=== PATIENT | male | born 1950 | race African-American/Black ===

== ENCOUNTER 2018-11-13 10:41 | Inpatient (IN) | payer BC, MEDICARE ==
[~2018-11-13] VITALS: Ht 188 cm; Wt 136.5 kg
[2018-11-13] MEDS ORDERED: FUROSEMIDE 40MG/4ML VIAL IV ONE (11:30)
[2018-11-13 12:23] LABS: BG BASE EXCESS -0.6 mmol/L (-2.0-2.0); BG BILEVEL POS AIRWAY PRESSURE ST=15/5; BG CARBOXYHEMOGLOBIN 3.9 % (0.5-1.5); BG DEOXYHEMOGLOBIN 7.6 % (0.0-5.0); BG FRACTION INSPIRED OXYGEN 50; BG HCO3 ACT 25.8 mmol/L (22.0-26.0); BG METHEMOGLOBIN 0.3 % (0.0-1.5); BG OXYGEN SATURATION 92.1 % (92.0-98.5); BG OXYHEMOGLOBIN 88.2 % (94.0-97.0); BG PCO2 49.6 mmHg (35.0-45.0); BG PH 7.334 (7.350-7.450); BG PO2 68.5 mmHg (75.0-100.0); BG PRESSURE SUPPORT 10; BG SAMPLE SITE RIGHT RADIAL; BG TOTAL HEMOGLOBIN 13.7 g/dL (12.0-18.0); BG VENT MODE MASK - BIPAP; BG VENT RATE 16 set
[2018-11-13 12:44] LABS: HEMATOCRIT. 42.2 % (42.0-52.0); HEMOGLOBIN. 13.1 g/dL (14.0-18.0); INR 1.2; MEAN CORPUSCULAR HEMOGLOBIN 24.6 pg (28.0-32.0); MEAN CORPUSCULAR VOLUME 78.9 fL (80.0-94.0); MEAN PLATELET VOLUME 7.1 fl (7.4-10.4); PLATELET 309 x1000/uL (130-400); PROTHROMBIN TIME 12.2 sec (9.1-11.1); RED BLOOD CELL COUNT 5.35 mill/uL (4.7-6.1); RED CELL DISTRIBUTION WIDTH 19.4 % (11.6-14.6)
[2018-11-13] MEDS ORDERED: CLINDAMYCIN 900 MG in DEXTROSE 5% WATER 50 ML IV ONE (12:45)
[2018-11-13 12:48] LABS: CHLORIDE 105 mEq/L (98-107)
[2018-11-13] MEDS ORDERED: NITROGLYCERIN OINT 1GM/INCH UDPKT TD ONE (13:15)
[2018-11-13 13:24] LABS: NUCLEATED RED BLOOD CELLS 1 /100 WBC; PLATELET ESTIMATE NORMAL
[2018-11-13] MEDS ORDERED: DEXTROSE 50% WATER 50ML SYRINGE IV ONE (13:45)
[2018-11-13] MEDS ORDERED: INSULIN REGULAR (HUMULIN R) 300UNITS/3ML IV ONE (13:45)
[2018-11-13] MEDS ORDERED: SODIUM POLYSTYRENE SULFONATE 15 G/60 ML BOT PO ONE (13:45)
[2018-11-13] MEDS: ALBUTEROL (0.083%) 2.5MG/3ML NEB HHN SCH ×3 (14:00→15:10)
[2018-11-13] MEDS ORDERED: CLONIDINE 0.1MG TABLET PO PRN (16:45)
[2018-11-13] MEDS ORDERED: DEXTROSE 50% WATER 50ML SYRINGE IV PRN (16:45)
[2018-11-13] MEDS ORDERED: FUROSEMIDE 100MG/10ML VIAL IVP SCH (22:00)
[2018-11-13] MEDS: ASPIRIN 81MG EC TABLET PO SCH (22:14)
[2018-11-13] MEDS ORDERED: GABAPENTIN 100MG CAPSULE PO NR (22:48)
[2018-11-14 06:17] LABS: HEMATOCRIT. 41.5 % (42.0-52.0); HEMOGLOBIN. 12.8 g/dL (14.0-18.0); MEAN CORPUSCULAR HEMOGLOBIN 24.4 pg (28.0-32.0); MEAN CORPUSCULAR VOLUME 78.8 fL (80.0-94.0); PLATELET 306 x1000/uL (130-400); RED BLOOD CELL COUNT 5.26 mill/uL (4.7-6.1); RED CELL DISTRIBUTION WIDTH 19.8 % (11.6-14.6)
[2018-11-14 06:23] LABS: CHLORIDE 107 mEq/L (98-107)
[2018-11-14 06:33] LABS: CREATINE KINASE 27 IU/L (39-308); CREATINE KINASE MB FRACTION < 1.0 ng/mL (0.5-3.6); LDL CHOLESTEROL 30 mg/dL (5-100)
[2018-11-14 06:34] LABS: HDL CHOLESTEROL 35 mg/dL (40-59)
[2018-11-14 06:45] LABS: NUCLEATED RED BLOOD CELLS 1 /100 WBC; PLATELET ESTIMATE NORMAL
[2018-11-14 08:00] VITALS: BP 124/65
[2018-11-14 10:58] VITALS: BP 124/65
[2018-11-14 11:30] VITALS: BP 125/63
[2018-11-14 12:00] VITALS: BP_SYST 125; BP_DIAS 63; BP_DIAS 72
[2018-11-14] MEDS ORDERED: FUROSEMIDE 40MG/4ML VIAL IVP SCH (12:00)
[2018-11-14] MEDS: BLOOD SUGAR DIAGNOSTIC STRIP TEST SCH ×3 (12:11→21:57)
[2018-11-14] MEDS: INSULIN LISPRO 100 UNITS/ML SUBCUT SCH ×3 (12:15→21:00)
[2018-11-14] MEDS: ASPIRIN 81MG EC TABLET PO SCH (13:30)
[2018-11-14] MEDS: GABAPENTIN 100MG CAPSULE PO SCH ×2 (13:30→21:57)
[2018-11-14] MEDS ORDERED: METF-416 MT (15:28)
[2018-11-14] MEDS ORDERED: FURO40TA5 MT (15:29)
[2018-11-14] MEDS ORDERED: GABA-529 MT (15:33)
[2018-11-14] MEDS ORDERED: LIRA0.6P2 SQ (15:45)
[2018-11-14] MEDS ORDERED: ZINC50TA69 MT (15:45)
[2018-11-14] MEDS ORDERED: SILD20TA MT (15:45)
[2018-11-14] MEDS ORDERED: FLUT1BLS3 IH (15:45)
[2018-11-14] MEDS ORDERED: [UNRECOGNIZED DRUG - CODE] TP (15:45)
[2018-11-14] MEDS ORDERED: FENO145T36 PO (15:45)
[2018-11-14] MEDS ORDERED: FLUO15CR2 TP (15:45)
[2018-11-14] MEDS ORDERED: LEVO500T89 MT (15:45)
[2018-11-14] MEDS ORDERED: SPIR25TA6 MT (15:45)
[2018-11-14] MEDS ORDERED: AMBR5TAB3 MT (15:45)
[2018-11-14] MEDS ORDERED: ALBU90AE INH (15:45)
[2018-11-14] MEDS ORDERED: ASPI-1159 MT (15:45)
[2018-11-14] MEDS ORDERED: AMLO5TAB88 MT (15:45)
[2018-11-14 16:00] VITALS: BP 129/63
[2018-11-14] MEDS ORDERED: METOLAZONE 5MG TABLET PO NR (17:00)
[2018-11-14] MEDS ORDERED: ENOXAPARIN 80MG/0.8ML SYR SUBCUT NR (17:15)
[2018-11-14] MEDS ORDERED: ALBUTEROL (0.083%) 2.5MG/3ML NEB HHN PRN (18:45)
[2018-11-14] MEDS: FUROSEMIDE 100MG/10ML VIAL IVP SCH (19:01)
[2018-11-14 20:00] VITALS: BP 136/70
[2018-11-14] MEDS: AMLODIPINE 2.5MG TABLET PO SCH (21:58)
[2018-11-14] MEDS: LETAIRIS 5 MG PO SCH (21:58)
[2018-11-14] MEDS: FLUTICASONE/VILANTEROL 200-25 BLST.W.DEV ORI SCH (23:06)
[2018-11-14] MEDS: UMECLIDINIUM BROMIDE 1 INH BLST.W.DEV IH SCH (23:07)
[2018-11-14] MEDS ORDERED: PREDNISONE 20MG TABLET PO SCH (23:33)
[2018-11-15] VITALS: BP 114/56
[2018-11-15 04:05] VITALS: BP 110/61
[2018-11-15] MEDS: GABAPENTIN 100MG CAPSULE PO SCH ×3 (04:57→21:36)
[2018-11-15] MEDS: FUROSEMIDE 100MG/10ML VIAL IVP SCH ×2 (04:57→19:26)
[2018-11-15] MEDS: SILDENAFIL CITRATE 20MG TABLET PO SCH ×3 (05:03→21:36)
[2018-11-15] MEDS: BLOOD SUGAR DIAGNOSTIC STRIP TEST SCH ×4 (06:07→21:29)
[2018-11-15] MEDS: INSULIN LISPRO 100 UNITS/ML SUBCUT SCH ×4 (06:10→21:37)
[2018-11-15 06:37] LABS: CHLORIDE 103 mEq/L (98-107)
[2018-11-15 06:38] LABS: HEMATOCRIT. 40.1 % (42.0-52.0); HEMOGLOBIN. 12.6 g/dL (14.0-18.0); MEAN CORPUSCULAR HEMOGLOBIN 24.6 pg (28.0-32.0); MEAN CORPUSCULAR VOLUME 78.6 fL (80.0-94.0); MEAN PLATELET VOLUME 7.3 fl (7.4-10.4); PLATELET 313 x1000/uL (130-400); RED BLOOD CELL COUNT 5.11 mill/uL (4.7-6.1); RED CELL DISTRIBUTION WIDTH 19.8 % (11.6-14.6)
[2018-11-15 08:00] VITALS: BP 113/54
[2018-11-15] MEDS: AMLODIPINE 2.5MG TABLET PO SCH ×2 (09:00→21:00)
[2018-11-15] MEDS ORDERED: ENOXAPARIN 40MG/0.4ML SYR SUBCUT SCH (09:00)
[2018-11-15] MEDS: UMECLIDINIUM BROMIDE 1 INH BLST.W.DEV IH SCH (09:00)
[2018-11-15] MEDS: FLUTICASONE/VILANTEROL 200-25 BLST.W.DEV ORI SCH (09:00)
[2018-11-15] MEDS: NICOTINE 21MG PATCH TD SCH (09:00)
[2018-11-15] MEDS: ASPIRIN 81MG EC TABLET PO SCH (09:51)
[2018-11-15] MEDS: LETAIRIS 5 MG PO SCH (09:52)
[2018-11-15] MEDS: PREDNISONE 20MG TABLET PO SCH (09:53)
[2018-11-15 11:00] LABS: BG BASE EXCESS 3.5 mmol/L (-2.0-2.0); BG CARBOXYHEMOGLOBIN 2.1 % (0.5-1.5); BG DEOXYHEMOGLOBIN 17.7 % (0.0-5.0); BG FRACTION INSPIRED OXYGEN 28; BG HCO3 ACT 30.1 mmol/L (22.0-26.0); BG METHEMOGLOBIN 0.4 % (0.0-1.5); BG OXYGEN SATURATION 81.8 % (92.0-98.5); BG OXYHEMOGLOBIN 79.8 % (94.0-97.0); BG PCO2 53.7 mmHg (35.0-45.0); BG PH 7.366 (7.350-7.450); BG PO2 47.5 mmHg (75.0-100.0); BG SAMPLE SITE RIGHT RADIAL; BG TOTAL HEMOGLOBIN 13.5 g/dL (12.0-18.0); BG VENT MODE NASAL CANNULA
[2018-11-15 12:00] VITALS: BP 120/67
[2018-11-15 13:30] LABS: NUCLEATED RED BLOOD CELLS 1 /100 WBC
[2018-11-15 13:31] LABS: PLATELET ESTIMATE NORMAL
[2018-11-15 15:12] LABS: BG BASE EXCESS 3.7 mmol/L (-2.0-2.0); BG CARBOXYHEMOGLOBIN 2.1 % (0.5-1.5); BG DEOXYHEMOGLOBIN 14.4 % (0.0-5.0); BG FRACTION INSPIRED OXYGEN 40; BG METHEMOGLOBIN 0.2 % (0.0-1.5); BG OXYGEN SATURATION 85.3 % (92.0-98.5); BG OXYHEMOGLOBIN 83.3 % (94.0-97.0); BG PCO2 52.4 mmHg (35.0-45.0); BG PH 7.376 (7.350-7.450); BG PO2 51.9 mmHg (75.0-100.0); BG SAMPLE SITE RIGHT BRACHIAL; BG TOTAL HEMOGLOBIN 13.5 g/dL (12.0-18.0); BG VENT MODE NASAL CANNULA
[2018-11-15] MEDS ORDERED: ENOXAPARIN 80MG/0.8ML SYR SUBCUT SCH (15:30)
[2018-11-15 16:00] VITALS: BP 109/40
[2018-11-15] MEDS ORDERED: ENOXAPARIN 40MG/0.4ML SYR SUBCUT NR (17:30)
[2018-11-15 20:00] VITALS: BP 112/57
[2018-11-16] VITALS (7 sets, daily range): BP systolic 104–113; BP diastolic 48–67
[2018-11-16] MEDS ORDERED: METOLAZONE 2.5MG TABLET PO NR (05:30)
[2018-11-16] MEDS: FUROSEMIDE 100MG/10ML VIAL IVP SCH ×2 (06:12→17:25)
[2018-11-16] MEDS: GABAPENTIN 100MG CAPSULE PO SCH ×3 (06:12→22:33)
[2018-11-16] MEDS: SILDENAFIL CITRATE 20MG TABLET PO SCH ×3 (06:13→22:33)
[2018-11-16] MEDS: BLOOD SUGAR DIAGNOSTIC STRIP TEST SCH ×4 (06:31→21:00)
[2018-11-16] MEDS: INSULIN LISPRO 100 UNITS/ML SUBCUT SCH ×4 (06:31→21:00)
[2018-11-16 08:06] LABS: HEMATOCRIT. 39.5 % (42.0-52.0); HEMOGLOBIN. 12.1 g/dL (14.0-18.0); MEAN CORPUSCULAR HEMOGLOBIN 24.2 pg (28.0-32.0); MEAN CORPUSCULAR VOLUME 78.8 fL (80.0-94.0); MEAN PLATELET VOLUME 7.3 fl (7.4-10.4); PLATELET 308 x1000/uL (130-400); RED BLOOD CELL COUNT 5.01 mill/uL (4.7-6.1); RED CELL DISTRIBUTION WIDTH 19.2 % (11.6-14.6)
[2018-11-16 08:07] LABS: CHLORIDE 101 mEq/L (98-107)
[2018-11-16] MEDS: AMLODIPINE 2.5MG TABLET PO SCH ×2 (08:07→21:00)
[2018-11-16 08:18] LABS: CREATINE KINASE 29 IU/L (39-308)
[2018-11-16 08:21] LABS: CREATINE KINASE MB FRACTION < 1.0 ng/mL (0.5-3.6)
[2018-11-16] MEDS: NICOTINE 21MG PATCH TD SCH (09:00)
[2018-11-16] MEDS ORDERED: ENOXAPARIN 80MG/0.8ML SYR SUBCUT SCH ×2 (09:00→21:00)
[2018-11-16] MEDS: PREDNISONE 20MG TABLET PO SCH (09:53)
[2018-11-16] MEDS: ASPIRIN 81MG EC TABLET PO SCH (09:54)
[2018-11-16] MEDS: LETAIRIS 5 MG PO SCH (09:55)
[2018-11-16] MEDS: UMECLIDINIUM BROMIDE 1 INH BLST.W.DEV IH SCH (09:56)
[2018-11-16] MEDS: FLUTICASONE/VILANTEROL 200-25 BLST.W.DEV ORI SCH (09:56)
[2018-11-16 10:23] LABS: BG BASE EXCESS 3.2 mmol/L (-2.0-2.0); BG CARBOXYHEMOGLOBIN 1.5 % (0.5-1.5); BG DEOXYHEMOGLOBIN 5.1 % (0.0-5.0); BG HCO3 ACT 29.7 mmol/L (22.0-26.0); BG METHEMOGLOBIN 0.3 % (0.0-1.5); BG OXYGEN SATURATION 94.8 % (92.0-98.5); BG OXYHEMOGLOBIN 93.1 % (94.0-97.0); BG PCO2 53.2 mmHg (35.0-45.0); BG PH 7.364 (7.350-7.450); BG PO2 77.5 mmHg (75.0-100.0); BG SAMPLE SITE RIGHT RADIAL; BG TOTAL HEMOGLOBIN 13.4 g/dL (12.0-18.0); BG VENT MODE MASK - VENTI
[2018-11-16 13:49] LABS: PLATELET ESTIMATE NORMAL
[2018-11-16] MEDS ORDERED: IOHEXOL-350 100 ML BOTTLE ONE (22:57)
[2018-11-17] VITALS: BP 110/45
[2018-11-17 00:37] LABS: BG BASE EXCESS 5.7 mmol/L (-2.0-2.0); BG CARBOXYHEMOGLOBIN 1.2 % (0.5-1.5); BG DEOXYHEMOGLOBIN 11.2 % (0.0-5.0); BG FRACTION INSPIRED OXYGEN 36; BG HCO3 ACT 33.1 mmol/L (22.0-26.0); BG METHEMOGLOBIN 0.4 % (0.0-1.5); BG OXYGEN SATURATION 88.6 % (92.0-98.5); BG OXYHEMOGLOBIN 87.2 % (94.0-97.0); BG PCO2 61.3 mmHg (35.0-45.0); BG PO2 58.1 mmHg (75.0-100.0); BG SAMPLE SITE RIGHT RADIAL; BG TOTAL HEMOGLOBIN 13.2 g/dL (12.0-18.0); BG VENT MODE NASAL CANNULA
[2018-11-17 04:00] VITALS: BP 123/64
[2018-11-17] MEDS ORDERED: METOLAZONE 2.5MG TABLET PO NR (05:30)
[2018-11-17] MEDS: FUROSEMIDE 100MG/10ML VIAL IVP SCH ×2 (06:20→18:58)
[2018-11-17] MEDS: SILDENAFIL CITRATE 20MG TABLET PO SCH ×3 (06:20→20:38)
[2018-11-17] MEDS: GABAPENTIN 100MG CAPSULE PO SCH ×3 (06:21→20:37)
[2018-11-17] MEDS: BLOOD SUGAR DIAGNOSTIC STRIP TEST SCH ×4 (06:31→20:38)
[2018-11-17] MEDS: INSULIN LISPRO 100 UNITS/ML SUBCUT SCH ×4 (06:31→21:00)
[2018-11-17 06:53] LABS: BASOPHILS % 0.5 % (0.0-2.0); EOSINOPHILS % 1.4 % (0.0-5.0); HEMATOCRIT. 40.3 % (42.0-52.0); HEMOGLOBIN. 12.5 g/dL (14.0-18.0); LYMPHOCYTES % 10.7 % (20.0-50.0); MEAN CORPUSCULAR HEMOGLOBIN 24.4 pg (28.0-32.0); MEAN CORPUSCULAR VOLUME 78.3 fL (80.0-94.0); MEAN PLATELET VOLUME 7.1 fl (7.4-10.4); MONOCYTES % 13.6 % (2.0-8.0); NEUTROPHILS % 73.8 % (40.0-76.0); PLATELET 311 x1000/uL (130-400); RED BLOOD CELL COUNT 5.14 mill/uL (4.7-6.1); RED CELL DISTRIBUTION WIDTH 19.5 % (11.6-14.6)
[2018-11-17 07:01] LABS: CHLORIDE 101 mEq/L (98-107)
[2018-11-17 08:00] VITALS: BP 119/58
[2018-11-17] MEDS: NICOTINE 21MG PATCH TD SCH (08:01)
[2018-11-17] MEDS: AMLODIPINE 2.5MG TABLET PO SCH ×2 (08:59→20:37)
[2018-11-17] MEDS ORDERED: ENOXAPARIN 80MG/0.8ML SYR SUBCUT SCH ×2 (09:00→21:00)
[2018-11-17] MEDS: PREDNISONE 20MG TABLET PO SCH (09:08)
[2018-11-17] MEDS: ASPIRIN 81MG EC TABLET PO SCH (09:08)
[2018-11-17] MEDS: LETAIRIS 5 MG PO SCH (09:10)
[2018-11-17] MEDS: UMECLIDINIUM BROMIDE 1 INH BLST.W.DEV IH SCH (09:11)
[2018-11-17] MEDS: FLUTICASONE/VILANTEROL 200-25 BLST.W.DEV ORI SCH (09:11)
[2018-11-17 10:52] LABS: BG CARBOXYHEMOGLOBIN 1.5 % (0.5-1.5); BG DEOXYHEMOGLOBIN 12.7 % (0.0-5.0); BG FRACTION INSPIRED OXYGEN 36; BG HCO3 ACT 33.1 mmol/L (22.0-26.0); BG METHEMOGLOBIN 0.3 % (0.0-1.5); BG OXYGEN SATURATION 87.1 % (92.0-98.5); BG OXYHEMOGLOBIN 85.5 % (94.0-97.0); BG PCO2 58.9 mmHg (35.0-45.0); BG PH 7.368 (7.350-7.450); BG PO2 55.4 mmHg (75.0-100.0); BG SAMPLE SITE RIGHT RADIAL; BG TOTAL HEMOGLOBIN 13.7 g/dL (12.0-18.0); BG VENT MODE NASAL CANNULA
[2018-11-17 12:00] VITALS: BP 110/55
[2018-11-17 16:00] VITALS: BP 108/50
[2018-11-17 20:00] VITALS: BP 134/52
[2018-11-18] VITALS: BP 116/54
[2018-11-18 04:00] VITALS: BP 104/48
[2018-11-18] MEDS: METOLAZONE 5MG TABLET PO SCH (05:40)
[2018-11-18] MEDS: INSULIN LISPRO 100 UNITS/ML SUBCUT SCH ×4 (06:18→21:00)
[2018-11-18] MEDS: GABAPENTIN 100MG CAPSULE PO SCH ×3 (06:18→22:02)
[2018-11-18] MEDS: BLOOD SUGAR DIAGNOSTIC STRIP TEST SCH ×4 (06:18→21:00)
[2018-11-18] MEDS: SILDENAFIL CITRATE 20MG TABLET PO SCH ×3 (06:19→22:02)
[2018-11-18] MEDS: FUROSEMIDE 100MG/10ML VIAL IVP SCH ×2 (06:19→17:31)
[2018-11-18 07:10] LABS: HEMATOCRIT. 41.7 % (42.0-52.0); MEAN CORPUSCULAR HEMOGLOBIN 24.2 pg (28.0-32.0); MEAN CORPUSCULAR VOLUME 77.7 fL (80.0-94.0); MEAN PLATELET VOLUME 7.1 fl (7.4-10.4); PLATELET 318 x1000/uL (130-400); RED BLOOD CELL COUNT 5.37 mill/uL (4.7-6.1); RED CELL DISTRIBUTION WIDTH 19.3 % (11.6-14.6)
[2018-11-18 07:34] LABS: CHLORIDE 98 mEq/L (98-107)
[2018-11-18 08:00] VITALS: BP 109/37
[2018-11-18] MEDS: ASPIRIN 81MG EC TABLET PO SCH (08:58)
[2018-11-18] MEDS: AMLODIPINE 2.5MG TABLET PO SCH ×2 (08:58→21:00)
[2018-11-18] MEDS: PREDNISONE 20MG TABLET PO SCH (08:58)
[2018-11-18] MEDS: NICOTINE 21MG PATCH TD SCH (09:00)
[2018-11-18] MEDS: ENOXAPARIN 80MG/0.8ML SYR SUBCUT SCH (09:01)
[2018-11-18] MEDS: LETAIRIS 5 MG PO SCH (09:01)
[2018-11-18] MEDS: UMECLIDINIUM BROMIDE 1 INH BLST.W.DEV IH SCH (09:01)
[2018-11-18] MEDS: FLUTICASONE/VILANTEROL 200-25 BLST.W.DEV ORI SCH (09:01)
[2018-11-18 11:31] LABS: NUCLEATED RED BLOOD CELLS 1 /100 WBC; PLATELET ESTIMATE NORMAL
[2018-11-18 12:00] VITALS: BP 157/58
[2018-11-18 16:00] VITALS: BP 123/64
[2018-11-18 20:00] VITALS: BP 106/44
[2018-11-19] VITALS: BP 114/57
[2018-11-19 04:00] VITALS: BP 100/60
[2018-11-19] MEDS: METOLAZONE 5MG TABLET PO SCH (05:41)
[2018-11-19 06:17] LABS: HEMATOCRIT. 40.4 % (42.0-52.0); HEMOGLOBIN. 12.6 g/dL (14.0-18.0); MEAN CORPUSCULAR HEMOGLOBIN 24.4 pg (28.0-32.0); MEAN CORPUSCULAR VOLUME 78.1 fL (80.0-94.0); MEAN PLATELET VOLUME 7.1 fl (7.4-10.4); PLATELET 286 x1000/uL (130-400); RED BLOOD CELL COUNT 5.18 mill/uL (4.7-6.1); RED CELL DISTRIBUTION WIDTH 19.1 % (11.6-14.6)
[2018-11-19] MEDS: BLOOD SUGAR DIAGNOSTIC STRIP TEST SCH ×4 (06:33→20:19)
[2018-11-19] MEDS: SILDENAFIL CITRATE 20MG TABLET PO SCH ×3 (06:43→21:07)
[2018-11-19] MEDS: GABAPENTIN 100MG CAPSULE PO SCH ×3 (06:43→21:07)
[2018-11-19] MEDS: FUROSEMIDE 100MG/10ML VIAL IVP SCH ×2 (06:44→18:08)
[2018-11-19] MEDS: INSULIN LISPRO 100 UNITS/ML SUBCUT SCH ×4 (06:51→21:12)
[2018-11-19 07:34] LABS: CHLORIDE 99 mEq/L (98-107)
[2018-11-19 08:00] VITALS: BP 121/63
[2018-11-19] MEDS: AMLODIPINE 2.5MG TABLET PO SCH ×2 (09:00→20:19)
[2018-11-19] MEDS: NICOTINE 21MG PATCH TD SCH (09:00)
[2018-11-19] MEDS: UMECLIDINIUM BROMIDE 1 INH BLST.W.DEV IH SCH (09:25)
[2018-11-19] MEDS: PREDNISONE 20MG TABLET PO SCH (09:25)
[2018-11-19] MEDS: FLUTICASONE/VILANTEROL 200-25 BLST.W.DEV ORI SCH (09:25)
[2018-11-19] MEDS: ENOXAPARIN 80MG/0.8ML SYR SUBCUT SCH (09:26)
[2018-11-19] MEDS: ASPIRIN 81MG EC TABLET PO SCH (09:26)
[2018-11-19] MEDS: LETAIRIS 5 MG PO SCH (09:26)
[2018-11-19 12:00] VITALS: BP 115/54
[2018-11-19 13:47] LABS: NUCLEATED RED BLOOD CELLS 3 /100 WBC; PLATELET ESTIMATE NORMAL
[2018-11-19 16:00] VITALS: BP 148/67
[2018-11-19 20:00] VITALS: BP 107/53
[2018-11-20] VITALS: BP 100/48
[2018-11-20 04:00] VITALS: BP 120/63
[2018-11-20] MEDS: METOLAZONE 5MG TABLET PO SCH (05:41)
[2018-11-20] MEDS: BLOOD SUGAR DIAGNOSTIC STRIP TEST SCH ×2 (05:46→11:50)
[2018-11-20] MEDS: INSULIN LISPRO 100 UNITS/ML SUBCUT SCH ×2 (06:21→12:14)
[2018-11-20] MEDS: GABAPENTIN 100MG CAPSULE PO SCH ×2 (06:32→15:46)
[2018-11-20] MEDS: SILDENAFIL CITRATE 20MG TABLET PO SCH ×2 (06:33→15:45)
[2018-11-20] MEDS: FUROSEMIDE 100MG/10ML VIAL IVP SCH (06:33)
[2018-11-20 06:46] LABS: HEMATOCRIT. 42.8 % (42.0-52.0); HEMOGLOBIN. 13.2 g/dL (14.0-18.0); MEAN CORPUSCULAR HEMOGLOBIN 24.1 pg (28.0-32.0); MEAN CORPUSCULAR VOLUME 77.9 fL (80.0-94.0); MEAN PLATELET VOLUME 7.3 fl (7.4-10.4); PLATELET 287 x1000/uL (130-400); RED CELL DISTRIBUTION WIDTH 19.3 % (11.6-14.6)
[2018-11-20 08:00] VITALS: BP 124/66
[2018-11-20 08:06] LABS: CHLORIDE 96 mEq/L (98-107)
[2018-11-20] MEDS: ENOXAPARIN 80MG/0.8ML SYR SUBCUT SCH (08:32)
[2018-11-20] MEDS: ASPIRIN 81MG EC TABLET PO SCH (08:32)
[2018-11-20] MEDS: UMECLIDINIUM BROMIDE 1 INH BLST.W.DEV IH SCH (08:32)
[2018-11-20] MEDS: PREDNISONE 20MG TABLET PO SCH (08:32)
[2018-11-20] MEDS: FLUTICASONE/VILANTEROL 200-25 BLST.W.DEV ORI SCH (08:33)
[2018-11-20] MEDS: NICOTINE 21MG PATCH TD SCH (08:33)
[2018-11-20] MEDS: LETAIRIS 5 MG PO SCH (08:33)
[2018-11-20] MEDS: AMLODIPINE 2.5MG TABLET PO SCH (08:34)
[2018-11-20 12:00] VITALS: BP 120/70
[2018-11-20 13:50] VITALS: BP_SYST 120; BP_SYST 230; BP_DIAS 70
[2018-11-20 17:02] LABS: PLATELET ESTIMATE NORMAL
== END 2018-11-20 16:15 | disposition home or self-care (01) | DRG 291 ==
LOC: ER 10:41 → 5WST 13:38 → EDBEDREQ 13:40 → ENRESERV 11-14 08:01
PROVIDERS: ADMIT Specialist; ATTEND Specialist
PROC: 5A09357 Assistance with Respiratory Ventilation, Less than 24 Consecutive Hours, Continuous Positive Airway Pressure (ICD-10-PCS; principal; 2018-11-13)
DX: I13.0 Hypertensive heart and chronic kidney disease with heart failure and stage 1 through stage 4 chronic kidney disease, or unspecified chronic kidney disease (principal); J96.21 Acute and chronic respiratory failure with hypoxia; I50.33 Acute on chronic diastolic (congestive) heart failure; J96.22 Acute and chronic respiratory failure with hypercapnia; J44.1 Chronic obstructive pulmonary disease with (acute) exacerbation; J98.11 Atelectasis; Z68.41 Body mass index [BMI] 40.0-44.9, adult; I87.1 Compression of vein; L97.919 Non-pressure chronic ulcer of unspecified part of right lower leg with unspecified severity; L97.928 Non-pressure chronic ulcer of unspecified part of left lower leg with other specified severity; E87.5 Hyperkalemia; E66.01 Morbid (severe) obesity due to excess calories; G47.33 Obstructive sleep apnea (adult) (pediatric); I25.10 Atherosclerotic heart disease of native coronary artery without angina pectoris; I27.20 Pulmonary hypertension, unspecified; I87.8 Other specified disorders of veins; I83.009 Varicose veins of unspecified lower extremity with ulcer of unspecified site; N18.9 Chronic kidney disease, unspecified; E11.22 Type 2 diabetes mellitus with diabetic chronic kidney disease; E11.42 Type 2 diabetes mellitus with diabetic polyneuropathy; F17.210 Nicotine dependence, cigarettes, uncomplicated; I87.2 Venous insufficiency (chronic) (peripheral); I89.0 Lymphedema, not elsewhere classified; K74.60 Unspecified cirrhosis of liver; K80.20 Calculus of gallbladder without cholecystitis without obstruction; Z82.49 Family history of ischemic heart disease and other diseases of the circulatory system; Z87.11 Personal history of peptic ulcer disease; Z93.3 Colostomy status
CPT/HCPCS: 36415; 36600; 71045; 71275; 78582; 80048; 80061; 82375; 82550; 82553; 82805; 82962; 83735; 83880; 84443; 84484; 85379; 93005; 93306; 93970; 94660; 96365; 96366; 96375; 97022; 97162; 99291; A9558; J1650; J1815; J1940; J3490; J7060; J7512; J7611; Q9967

== ENCOUNTER 2022-10-21 08:50 | Inpatient (IN) | payer BC ==
[~2022-10-21] VITALS: Ht 185.4 cm; Wt 150.6 kg
[~2022-10-21 08:50] MED LIST: ALBU90AE INH; AMBR5TAB3 MT; AMLO5TAB88 MT; ASPI-1497 MT; FENO145T25 PO; FLUO15CR2 TP; FLUT1BLS3 IH; FURO40TA5 MT; GABA-529 MT; LEVO-65 MT; LIRA0.6P2 SQ; METF-416 MT; SILD20TA MT; SPIR25TA6 MT; ZINC50TA69 MT; [UNRECOGNIZED DRUG - CODE] TP
[2022-10-21] MEDS ORDERED: FUROSEMIDE 100MG/10ML VIAL IVP ONE (10:00)
[2022-10-21 10:21] LABS: CHLORIDE 106 mEq/L (98-107)
[2022-10-21 10:27] LABS: HEMATOCRIT. 36.1 % (42.0-52.0); HEMOGLOBIN. 10.3 g/dL (14.0-18.0); MEAN CORPUSCULAR VOLUME 83.7 fL (80.0-94.0); MEAN PLATELET VOLUME 7.3 fl (7.4-10.4); PLATELET 232 x1000/uL (130-400); RED BLOOD CELL COUNT 4.31 mill/uL (4.7-6.1); RED CELL DISTRIBUTION WIDTH 29.5 % (11.6-14.6)
[2022-10-21 10:50] LABS: NUCLEATED RED BLOOD CELLS 1 /100 WBC; PLATELET ESTIMATE NORMAL
[2022-10-21 11:11] LABS: BG BASE EXCESS 0.8 mmol/L (-2.0-2.0); BG CARBOXYHEMOGLOBIN 1.1 % (0.5-1.5); BG DEOXYHEMOGLOBIN 5.2 % (0.0-5.0); BG FRACTION INSPIRED OXYGEN 36; BG HCO3 ACT 27.3 mmol/L (22.0-26.0); BG METHEMOGLOBIN 0.4 % (0.0-1.5); BG OXYGEN SATURATION 94.7 % (92.0-98.5); BG OXYHEMOGLOBIN 93.3 % (94.0-97.0); BG PCO2 51.8 mmHg (35.0-45.0); BG PH 7.339 (7.350-7.450); BG PO2 80.7 mmHg (75.0-100.0); BG SAMPLE SITE RIGHT RADIAL; BG TOTAL HEMOGLOBIN 11.5 g/dL (12.0-18.0); BG VENT MODE NASAL CANNULA
[2022-10-21] MEDS: APIXABAN 5 MG TABLET PO SCH ×2 (11:15→23:24)
[2022-10-21] MEDS ORDERED: DEXTROSE 50% WATER 50ML SYRINGE IV PRN (12:30)
[2022-10-21] MEDS: INSULIN LISPRO 100 UNITS/ML SUBCUT SCH ×3 (14:55→21:00)
[2022-10-21] MEDS: BLOOD SUGAR DIAGNOSTIC STRIP TEST SCH ×3 (14:55→21:00)
[2022-10-21 15:43] LABS: TOTAL IRON BINDING CAPACITY 392 ug/dL (250-450)
[2022-10-21] MEDS: FUROSEMIDE 100MG/10ML VIAL IVP SCH (17:00)
[2022-10-21] MEDS: SPIRONOLACTONE 25MG TABLET PO SCH (17:00)
[2022-10-21 20:00] VITALS: BP_SYST 104; BP_SYST 135; BP_DIAS 55; BP_DIAS 62
[2022-10-21 20:44] VITALS: BP 135/45
[2022-10-21] MEDS: ATORVASTATIN CALCIUM 10MG TABLET PO SCH (23:23)
[2022-10-21] MEDS: METFORMIN HCL 500MG TABLET PO SCH (23:24)
[2022-10-22] VITALS: BP 118/57
[2022-10-22 04:00] VITALS: BP 114/60
[2022-10-22] MEDS: BLOOD SUGAR DIAGNOSTIC STRIP TEST SCH (05:50)
[2022-10-22] MEDS: INSULIN LISPRO 100 UNITS/ML SUBCUT SCH (05:50)
[2022-10-22 08:00] VITALS: BP 102/60
[2022-10-22] MEDS: SPIRONOLACTONE 25MG TABLET PO SCH ×3 (09:11→17:02)
[2022-10-22] MEDS: APIXABAN 5 MG TABLET PO SCH ×2 (09:11→17:02)
[2022-10-22 10:01] LABS: HEMATOCRIT. 36.4 % (42.0-52.0); HEMOGLOBIN. 10.5 g/dL (14.0-18.0); MEAN CORPUSCULAR HEMOGLOBIN 24.2 pg (28.0-32.0); MEAN CORPUSCULAR VOLUME 83.6 fL (80.0-94.0); MEAN PLATELET VOLUME 7.5 fl (7.4-10.4); PLATELET 220 x1000/uL (130-400); RED BLOOD CELL COUNT 4.36 mill/uL (4.7-6.1); RED CELL DISTRIBUTION WIDTH 29.5 % (11.6-14.6)
[2022-10-22] MEDS: FUROSEMIDE 100MG/10ML VIAL IVP SCH ×2 (10:01→17:01)
[2022-10-22 12:00] VITALS: BP 95/56
[2022-10-22 13:52] LABS: PLATELET ESTIMATE NORMAL
[2022-10-22] MEDS ORDERED: METOLAZONE 2.5MG TABLET PO NR (14:00)
[2022-10-22 16:00] VITALS: BP 136/62
[2022-10-22] MEDS: IRON SUCROSE COMPLEX 100 MG/5 ML ML IV SCH (17:02)
[2022-10-22 20:00] VITALS: BP 144/65
[2022-10-22] MEDS: METFORMIN HCL 500MG TABLET PO SCH (20:06)
[2022-10-22] MEDS: ATORVASTATIN CALCIUM 10MG TABLET PO SCH (20:06)
[2022-10-23] VITALS: BP 135/54
[2022-10-23 04:00] VITALS: BP 134/50
[2022-10-23 08:00] VITALS: BP 121/70
[2022-10-23] MEDS: FUROSEMIDE 100MG/10ML VIAL IVP SCH ×2 (09:04→17:45)
[2022-10-23] MEDS: SPIRONOLACTONE 25MG TABLET PO SCH ×2 (09:04→17:45)
[2022-10-23] MEDS: APIXABAN 5 MG TABLET PO SCH ×2 (09:04→17:45)
[2022-10-23] MEDS: IRON SUCROSE COMPLEX 100 MG/5 ML ML IV SCH (09:04)
[2022-10-23 10:17] LABS: HEMATOCRIT. 35.5 % (42.0-52.0); HEMOGLOBIN. 10.5 g/dL (14.0-18.0); MEAN CORPUSCULAR HEMOGLOBIN 24.3 pg (28.0-32.0); MEAN CORPUSCULAR VOLUME 82.1 fL (80.0-94.0); MEAN PLATELET VOLUME 7.8 fl (7.4-10.4); PLATELET 239 x1000/uL (130-400); RED BLOOD CELL COUNT 4.33 mill/uL (4.7-6.1); RED CELL DISTRIBUTION WIDTH 29.3 % (11.6-14.6)
[2022-10-23 10:31] LABS: PHOSPHORUS 3.4 mg/dL (2.5-4.9)
[2022-10-23 12:00] VITALS: BP 126/45
[2022-10-23 16:00] VITALS: BP 149/53
[2022-10-23] MEDS: ACETAMINOPHEN 500MG TABLET PO PRN (16:29)
[2022-10-23 16:38] LABS: PLATELET ESTIMATE NORMAL
[2022-10-23 20:00] VITALS: BP 148/55
[2022-10-23] MEDS: ATORVASTATIN CALCIUM 10MG TABLET PO SCH (21:01)
[2022-10-23] MEDS: METFORMIN HCL 500MG TABLET PO SCH (21:01)
[2022-10-24] VITALS (7 sets, daily range): BP systolic 118–141; BP diastolic 51–75
[2022-10-24] MEDS: ACETAMINOPHEN 500MG TABLET PO PRN ×2 (04:28→18:12)
[2022-10-24 06:25] LABS: HEMATOCRIT. 35.9 % (42.0-52.0); HEMOGLOBIN. 10.7 g/dL (14.0-18.0); MEAN CORPUSCULAR HEMOGLOBIN 24.2 pg (28.0-32.0); MEAN CORPUSCULAR VOLUME 81.5 fL (80.0-94.0); MEAN PLATELET VOLUME 7.6 fl (7.4-10.4); PLATELET 233 x1000/uL (130-400); RED BLOOD CELL COUNT 4.41 mill/uL (4.7-6.1); RED CELL DISTRIBUTION WIDTH 28.8 % (11.6-14.6)
[2022-10-24] MEDS: APIXABAN 5 MG TABLET PO SCH ×2 (08:26→18:09)
[2022-10-24] MEDS: FUROSEMIDE 100MG/10ML VIAL IVP SCH ×2 (08:26→18:09)
[2022-10-24] MEDS: SPIRONOLACTONE 25MG TABLET PO SCH ×2 (08:26→18:08)
[2022-10-24] MEDS: IRON SUCROSE COMPLEX 100 MG/5 ML ML IV SCH (12:51)
[2022-10-24 16:08] LABS: PLATELET ESTIMATE NORMAL
[2022-10-24] MEDS: METFORMIN HCL 500MG TABLET PO SCH (20:32)
[2022-10-24] MEDS: ATORVASTATIN CALCIUM 10MG TABLET PO SCH (20:32)
[2022-10-25 00:30] VITALS: BP 133/72
[2022-10-25 04:00] VITALS: BP 174/40
[2022-10-25 06:31] LABS: HEMOGLOBIN. 11.6 g/dL (14.0-18.0); MEAN CORPUSCULAR HEMOGLOBIN 24.5 pg (28.0-32.0); MEAN CORPUSCULAR VOLUME 80.5 fL (80.0-94.0); MEAN PLATELET VOLUME 7.7 fl (7.4-10.4); PLATELET 278 x1000/uL (130-400); RED BLOOD CELL COUNT 4.72 mill/uL (4.7-6.1); RED CELL DISTRIBUTION WIDTH 28.4 % (11.6-14.6)
[2022-10-25 07:03] LABS: PHOSPHORUS 2.3 mg/dL (2.5-4.9)
[2022-10-25] MEDS: ACETAMINOPHEN 500MG TABLET PO PRN ×2 (07:21→16:59)
[2022-10-25 08:00] VITALS: BP 118/51
[2022-10-25] MEDS: APIXABAN 5 MG TABLET PO SCH ×2 (08:02→16:59)
[2022-10-25] MEDS: FUROSEMIDE 100MG/10ML VIAL IVP SCH ×3 (08:03→21:36)
[2022-10-25] MEDS: SPIRONOLACTONE 25MG TABLET PO SCH ×2 (08:03→16:59)
[2022-10-25] MEDS: IRON SUCROSE COMPLEX 100 MG/5 ML ML IV SCH (10:41)
[2022-10-25 12:00] VITALS: BP 131/60
[2022-10-25] MEDS ORDERED: ATOR10TA PO (13:01)
[2022-10-25] MEDS ORDERED: METF-414 PO (13:01)
[2022-10-25] MEDS ORDERED: APIX5TAB PO (13:01)
[2022-10-25] MEDS ORDERED: METOLAZONE 2.5MG TABLET PO SCH (13:45)
[2022-10-25 16:00] VITALS: BP 149/67
[2022-10-25] MEDS ORDERED: IPRATROPIUM/ALBUTEROL 0.5-3(2.5)MG/3ML NEB HHN PRN (19:00)
[2022-10-25] MEDS ORDERED: IPRATROPIUM BROMIDE (0.02%) 0.5MG/2.5ML NEB HHN PRN (19:30)
[2022-10-25] MEDS ORDERED: ALBUTEROL (0.083%) 2.5MG/3ML NEB HHN PRN (19:30)
[2022-10-25 20:00] VITALS: BP 123/59
[2022-10-25] MEDS: ATORVASTATIN CALCIUM 10MG TABLET PO SCH (21:36)
[2022-10-25] MEDS: METFORMIN HCL 500MG TABLET PO SCH (21:36)
[2022-10-26] VITALS: BP 140/65
[2022-10-26 04:00] VITALS: BP 122/51
[2022-10-26] MEDS: FUROSEMIDE 100MG/10ML VIAL IVP SCH (05:52)
[2022-10-26 06:01] LABS: HEMATOCRIT. 38.8 % (42.0-52.0); HEMOGLOBIN. 11.9 g/dL (14.0-18.0); MEAN CORPUSCULAR HEMOGLOBIN 24.6 pg (28.0-32.0); MEAN CORPUSCULAR VOLUME 80.4 fL (80.0-94.0); MEAN PLATELET VOLUME 7.7 fl (7.4-10.4); PLATELET 272 x1000/uL (130-400); RED BLOOD CELL COUNT 4.83 mill/uL (4.7-6.1); RED CELL DISTRIBUTION WIDTH 28.3 % (11.6-14.6)
[2022-10-26 08:00] VITALS: BP 123/57
[2022-10-26] MEDS: APIXABAN 5 MG TABLET PO SCH ×2 (08:14→16:11)
[2022-10-26] MEDS: SPIRONOLACTONE 25MG TABLET PO SCH ×2 (08:16→16:11)
[2022-10-26 08:24] LABS: PHOSPHORUS 2.9 mg/dL (2.5-4.9)
[2022-10-26 10:23] LABS: PLATELET ESTIMATE NORMAL
[2022-10-26 12:00] VITALS: BP 126/56
[2022-10-26] MEDS ORDERED: FUROSEMIDE 40MG TABLET PO SCH ×2 (14:00→22:00)
[2022-10-26] MEDS ORDERED: FURO80TA3 MT (14:15)
[2022-10-26] MEDS ORDERED: METOLAZONE 2.5MG TABLET PO NR (15:30)
[2022-10-26 16:00] VITALS: BP 115/60
[2022-10-26 17:23] VITALS: BP 115/60
[2022-10-26 19:38] LABS: PLATELET ESTIMATE NORMAL
== END 2022-10-26 18:58 | disposition home or self-care (01) | DRG 291 ==
LOC: ER 08:50 → 7EST 12:14 → EDBEDREQTM 12:17 → EDBEDREQ 12:17 → ENRESERV 18:07
PROVIDERS: ADMIT Internal Medicine; ATTEND Internal Medicine
DX: I13.0 Hypertensive heart and chronic kidney disease with heart failure and stage 1 through stage 4 chronic kidney disease, or unspecified chronic kidney disease (principal); I50.33 Acute on chronic diastolic (congestive) heart failure; N17.0 Acute kidney failure with tubular necrosis; I48.92 Unspecified atrial flutter; Z68.41 Body mass index [BMI] 40.0-44.9, adult; E78.5 Hyperlipidemia, unspecified; I25.10 Atherosclerotic heart disease of native coronary artery without angina pectoris; N18.32 Chronic kidney disease, stage 3b; I27.20 Pulmonary hypertension, unspecified; J44.9 Chronic obstructive pulmonary disease, unspecified; I08.0 Rheumatic disorders of both mitral and aortic valves; E21.3 Hyperparathyroidism, unspecified; H40.9 Unspecified glaucoma; K21.9 Gastro-esophageal reflux disease without esophagitis; D63.1 Anemia in chronic kidney disease; E66.01 Morbid (severe) obesity due to excess calories; Z87.891 Personal history of nicotine dependence; Z79.01 Long term (current) use of anticoagulants; Z79.84 Long term (current) use of oral hypoglycemic drugs; Z79.899 Other long term (current) drug therapy; Z82.49 Family history of ischemic heart disease and other diseases of the circulatory system
CPT/HCPCS: 36415; 36600; 71045; 80048; 80053; 82375; 82805; 82962; 83036; 83540; 83550; 83735; 83880; 84100; 84484; 85025; 93005; 93306; 93970; 97162; 97166; 99285; J1940

== ENCOUNTER 2022-10-28 00:44 | Inpatient (IN) | payer BC ==
[~2022-10-28] VITALS: Ht 188 cm; Wt 143.3 kg
[~2022-10-28 00:44] MED LIST changes: +APIX5TAB PO; +ATOR10TA PO; +FURO80TA3 MT; +METF-414 PO
[2022-10-28 01:41] LABS: HEMATOCRIT. 38.8 % (42.0-52.0); HEMOGLOBIN. 11.8 g/dL (14.0-18.0); MEAN CORPUSCULAR HEMOGLOBIN 24.4 pg (28.0-32.0); MEAN CORPUSCULAR VOLUME 80.5 fL (80.0-94.0); MEAN PLATELET VOLUME 7.3 fl (7.4-10.4); PLATELET 313 x1000/uL (130-400); RED BLOOD CELL COUNT 4.82 mill/uL (4.7-6.1); RED CELL DISTRIBUTION WIDTH 27.8 % (11.6-14.6)
[2022-10-28 01:49] LABS: CHLORIDE 99 mEq/L (98-107)
[2022-10-28 02:11] LABS: PLATELET ESTIMATE NORMAL
[2022-10-28 02:22] LABS: INR 1.2
[2022-10-28] MEDS ORDERED: SODIUM CHLORIDE 0.9% 500 ML IV ONE (06:00)
[2022-10-28] MEDS ORDERED: ASPIRIN 325MG EC TABLET PO NR (06:45)
[2022-10-28 08:30] LABS: CLARITY URINE TURBID (CLEAR); COLOR URINE YELLOW (YELLOW)
[2022-10-28 08:31] LABS: PROTEIN URINE TRACE (NEGATIVE); SPECIFIC GRAVITY URINE 1.013 (1.005-1.030)
[2022-10-28 08:32] LABS: KETONES URINE NEGATIVE (NEGATIVE); NITRITE URINE NEGATIVE (NEGATIVE); OCCULT BLOOD URINE 2+ (NEGATIVE); UROBILINOGEN URINE 0.2 E.U./dL (0.2-1.0)
[2022-10-28 08:33] LABS: LEUKOCYTE ESTERASE URINE 3+ (NEGATIVE)
[2022-10-28] MEDS ORDERED: ENOXAPARIN 40MG/0.4ML SYR SUBCUT NR (10:00)
[2022-10-28] MEDS ORDERED: FUROSEMIDE 100MG/10ML VIAL IVP NR (10:15)
[2022-10-28] MEDS ORDERED: IPRATROPIUM/ALBUTEROL 0.5-3(2.5)MG/3ML NEB HHN PRN (12:00)
[2022-10-28] MEDS ORDERED: ONDANSETRON HCL 4MG/2ML INJ IV PRN (12:00)
[2022-10-28] MEDS ORDERED: CEFTRIAXONE 1 G PREMIX 50 ML IV SCH (12:30)
[2022-10-28] MEDS: TAMSULOSIN HCL 0.4MG SR CAPSULE PO SCH (12:43)
[2022-10-28 13:15] VITALS: BP 114/68
[2022-10-28] MEDS ORDERED: FUROSEMIDE 100MG/10ML VIAL IVP SCH ×2 (14:00→17:15)
[2022-10-28 14:08] VITALS: BP 114/68
[2022-10-28 16:00] VITALS: BP 114/51
[2022-10-28] MEDS: APIXABAN 5 MG TABLET PO SCH (18:36)
[2022-10-28] MEDS: FUROSEMIDE 100MG/10ML VIAL IVP SCH (18:36)
[2022-10-28] MEDS ORDERED: ALBUTEROL (0.083%) 2.5MG/3ML NEB HHN PRN (18:45)
[2022-10-28] MEDS ORDERED: IPRATROPIUM BROMIDE (0.02%) 0.5MG/2.5ML NEB HHN PRN (18:45)
[2022-10-28 20:00] VITALS: BP 119/63
[2022-10-29] VITALS: BP 100/44
[2022-10-29] MEDS: FUROSEMIDE 100MG/10ML VIAL IVP SCH ×3 (01:53→18:44)
[2022-10-29 04:00] VITALS: BP 130/42
[2022-10-29 06:13] LABS: HEMATOCRIT. 36.7 % (42.0-52.0); HEMOGLOBIN. 11.1 g/dL (14.0-18.0); MEAN CORPUSCULAR HEMOGLOBIN 24.4 pg (28.0-32.0); MEAN CORPUSCULAR VOLUME 80.5 fL (80.0-94.0); MEAN PLATELET VOLUME 7.7 fl (7.4-10.4); PLATELET 319 x1000/uL (130-400); RED BLOOD CELL COUNT 4.56 mill/uL (4.7-6.1); RED CELL DISTRIBUTION WIDTH 27.5 % (11.6-14.6)
[2022-10-29] MEDS: METOLAZONE 2.5MG TABLET PO SCH (10:17)
[2022-10-29] MEDS: APIXABAN 5 MG TABLET PO SCH ×3 (10:18→18:44)
[2022-10-29] MEDS: TAMSULOSIN HCL 0.4MG SR CAPSULE PO SCH (10:18)
[2022-10-29 11:59] LABS: PLATELET ESTIMATE NORMAL
[2022-10-29 12:00] VITALS: BP 131/70
[2022-10-29] MEDS: CEFTRIAXONE 1,000 MG in DEXTROSE 5% WATER 50 ML IV SCH (12:28)
[2022-10-29 16:00] VITALS: BP 111/54
[2022-10-29] MEDS: ACETAMINOPHEN 325MG TABLET PO PRN (16:56)
[2022-10-29 20:00] VITALS: BP 118/57
[2022-10-30] VITALS (8 sets, daily range): BP systolic 103–118; BP diastolic 48–64
[2022-10-30] MEDS: FUROSEMIDE 100MG/10ML VIAL IVP SCH ×3 (01:37→17:04)
[2022-10-30] MEDS: ACETAMINOPHEN 325MG TABLET PO PRN ×3 (05:43→13:14)
[2022-10-30 06:46] LABS: HEMATOCRIT. 33.4 % (42.0-52.0); HEMOGLOBIN. 10.3 g/dL (14.0-18.0); MEAN CORPUSCULAR HEMOGLOBIN 24.7 pg (28.0-32.0); MEAN CORPUSCULAR VOLUME 79.8 fL (80.0-94.0); MEAN PLATELET VOLUME 7.7 fl (7.4-10.4); PLATELET 307 x1000/uL (130-400); RED BLOOD CELL COUNT 4.19 mill/uL (4.7-6.1); RED CELL DISTRIBUTION WIDTH 26.5 % (11.6-14.6)
[2022-10-30 08:33] LABS: NUCLEATED RED BLOOD CELLS 1 /100 WBC; PLATELET ESTIMATE NORMAL
[2022-10-30] MEDS: APIXABAN 5 MG TABLET PO SCH (09:00)
[2022-10-30] MEDS: TAMSULOSIN HCL 0.4MG SR CAPSULE PO SCH (09:00)
[2022-10-30] MEDS: METOLAZONE 2.5MG TABLET PO SCH (09:00)
[2022-10-30] MEDS: CEFTRIAXONE 1,000 MG in DEXTROSE 5% WATER 50 ML IV SCH (13:14)
[2022-10-30] MEDS: DOCUSATE SODIUM 250MG CAPSULE PO SCH (17:35)
[2022-10-30] MEDS ORDERED: LACTULOSE 20G/30ML UDC PO PRN (19:00)
[2022-10-30] MEDS: HYDROCODONE/ACETAMINOPHEN 10/325MG TABLET PO PRN (21:15)
[2022-10-31] MEDS: FUROSEMIDE 100MG/10ML VIAL IVP SCH ×3 (01:19→18:28)
[2022-10-31 04:00] VITALS: BP 112/46
[2022-10-31 07:19] LABS: HEMATOCRIT. 33.6 % (42.0-52.0); HEMOGLOBIN. 10.4 g/dL (14.0-18.0); MEAN CORPUSCULAR HEMOGLOBIN 24.6 pg (28.0-32.0); MEAN CORPUSCULAR VOLUME 79.6 fL (80.0-94.0); MEAN PLATELET VOLUME 7.7 fl (7.4-10.4); PLATELET 323 x1000/uL (130-400); RED BLOOD CELL COUNT 4.21 mill/uL (4.7-6.1); RED CELL DISTRIBUTION WIDTH 26.8 % (11.6-14.6)
[2022-10-31 07:42] LABS: PHOSPHORUS 3.5 mg/dL (2.5-4.9)
[2022-10-31 08:00] VITALS: BP 148/52
[2022-10-31] MEDS: DOCUSATE SODIUM 250MG CAPSULE PO SCH (10:11)
[2022-10-31] MEDS: METOLAZONE 2.5MG TABLET PO SCH (10:12)
[2022-10-31] MEDS: TAMSULOSIN HCL 0.4MG SR CAPSULE PO SCH (10:12)
[2022-10-31 11:42] LABS: PLATELET ESTIMATE NORMAL
[2022-10-31 12:00] VITALS: BP 101/62
[2022-10-31] MEDS: CEFTRIAXONE 1,000 MG in DEXTROSE 5% WATER 50 ML IV SCH (12:14)
[2022-10-31] MEDS ORDERED: NALOXONE HCL 0.4MG/ML VIAL IV PRN (13:30)
[2022-10-31 16:00] VITALS: BP 122/53
[2022-10-31 20:00] VITALS: BP 109/69
[2022-10-31] MEDS: HYDROCODONE/ACETAMINOPHEN 10/325MG TABLET PO PRN (20:34)
[2022-11-01 00:05] VITALS: BP 133/54
[2022-11-01] MEDS: FUROSEMIDE 100MG/10ML VIAL IVP SCH ×3 (01:31→18:00)
[2022-11-01 04:00] VITALS: BP 110/49
[2022-11-01 06:59] LABS: HEMATOCRIT. 34.4 % (42.0-52.0); HEMOGLOBIN. 10.7 g/dL (14.0-18.0); MEAN CORPUSCULAR HEMOGLOBIN 24.9 pg (28.0-32.0); MEAN CORPUSCULAR VOLUME 80.1 fL (80.0-94.0); MEAN PLATELET VOLUME 7.4 fl (7.4-10.4); PLATELET 315 x1000/uL (130-400); RED CELL DISTRIBUTION WIDTH 26.1 % (11.6-14.6)
[2022-11-01 07:54] LABS: PHOSPHORUS 4.4 mg/dL (2.5-4.9)
[2022-11-01 08:13] VITALS: BP 107/54
[2022-11-01] MEDS: TAMSULOSIN HCL 0.4MG SR CAPSULE PO SCH (08:24)
[2022-11-01] MEDS: METOLAZONE 2.5MG TABLET PO SCH (08:27)
[2022-11-01] MEDS: DOCUSATE SODIUM 250MG CAPSULE PO SCH (08:29)
[2022-11-01] MEDS: CEFTRIAXONE 1,000 MG in DEXTROSE 5% WATER 50 ML IV SCH (11:19)
[2022-11-01 12:10] VITALS: BP 117/55
[2022-11-01] MEDS ORDERED: METHYLPREDNISOLONE ACETATE 40MG/ML VIAL INJ NR ×2 (13:00)
[2022-11-01] MEDS ORDERED: ROPIVACAINE HCL 1% 20 ML VIAL EPI NR (13:00)
[2022-11-01] MEDS ORDERED: LIDOCAINE HCL 1% 10 MG/ML 5ML VIAL INJ NR ×2 (13:00)
[2022-11-01] MEDS ORDERED: LIDOCAINE HCL 1% 10 MG/ML 10ML VIAL ONE (13:49)
[2022-11-01 15:59] VITALS: BP 121/59
[2022-11-01 17:48] LABS: PLATELET ESTIMATE NORMAL
[2022-11-01 20:00] VITALS: BP 115/56
[2022-11-01] MEDS: ACETAMINOPHEN 325MG TABLET PO PRN (21:32)
[2022-11-01] MEDS ORDERED: TAMS-11 MT (21:52)
[2022-11-02] VITALS (7 sets, daily range): BP systolic 106–136; BP diastolic 49–68
[2022-11-02] MEDS: FUROSEMIDE 100MG/10ML VIAL IVP SCH ×3 (03:30→17:12)
[2022-11-02 07:58] LABS: HEMATOCRIT. 35.2 % (42.0-52.0); HEMOGLOBIN. 11.1 g/dL (14.0-18.0); MEAN CORPUSCULAR VOLUME 79.5 fL (80.0-94.0); MEAN PLATELET VOLUME 7.3 fl (7.4-10.4); PLATELET 352 x1000/uL (130-400); RED BLOOD CELL COUNT 4.43 mill/uL (4.7-6.1); RED CELL DISTRIBUTION WIDTH 25.6 % (11.6-14.6)
[2022-11-02] MEDS: METOLAZONE 2.5MG TABLET PO SCH (08:37)
[2022-11-02] MEDS: TAMSULOSIN HCL 0.4MG SR CAPSULE PO SCH (08:37)
[2022-11-02] MEDS: DOCUSATE SODIUM 250MG CAPSULE PO SCH (08:39)
[2022-11-02 10:23] LABS: PHOSPHORUS 3.8 mg/dL (2.5-4.9)
[2022-11-02] MEDS: APIXABAN 5 MG TABLET PO SCH (17:12)
[2022-11-02 21:25] LABS: PLATELET ESTIMATE NORMAL
[2022-11-03] VITALS: BP 112/47
[2022-11-03] MEDS: FUROSEMIDE 100MG/10ML VIAL IVP SCH (01:01)
[2022-11-03 04:00] VITALS: BP 109/56
[2022-11-03 06:29] LABS: HEMATOCRIT. 37.5 % (42.0-52.0); HEMOGLOBIN. 11.5 g/dL (14.0-18.0); MEAN CORPUSCULAR HEMOGLOBIN 24.4 pg (28.0-32.0); MEAN CORPUSCULAR VOLUME 79.5 fL (80.0-94.0); MEAN PLATELET VOLUME 7.4 fl (7.4-10.4); PLATELET 423 x1000/uL (130-400); RED BLOOD CELL COUNT 4.72 mill/uL (4.7-6.1); RED CELL DISTRIBUTION WIDTH 25.5 % (11.6-14.6)
[2022-11-03 08:00] VITALS: BP 107/55
[2022-11-03] MEDS: APIXABAN 5 MG TABLET PO SCH (08:49)
[2022-11-03] MEDS: METOLAZONE 2.5MG TABLET PO SCH (08:49)
[2022-11-03] MEDS: DOCUSATE SODIUM 250MG CAPSULE PO SCH (08:50)
[2022-11-03] MEDS: TAMSULOSIN HCL 0.4MG SR CAPSULE PO SCH (08:50)
[2022-11-03 08:53] LABS: PHOSPHORUS 3.8 mg/dL (2.5-4.9)
[2022-11-03 18:35] LABS: PLATELET ESTIMATE INCREASED
== END 2022-11-03 12:00 | disposition home health service (06) | DRG 73 ==
LOC: ER 00:44 → MICUSO 01:14 → EDBEDREQ 08:31 → EDBEDREQDT 08:31 → 7WST 13:14
PROVIDERS: ADMIT Internal Medicine; ATTEND Internal Medicine
PROC: 0S9D3ZZ Drainage of Left Knee Joint, Percutaneous Approach (ICD-10-PCS; principal; 2022-11-01)
PROC: 0S9C3ZZ Drainage of Right Knee Joint, Percutaneous Approach (ICD-10-PCS; 2022-11-01)
DX: G90.8 Other disorders of autonomic nervous system (principal); I50.33 Acute on chronic diastolic (congestive) heart failure; J96.20 Acute and chronic respiratory failure, unspecified whether with hypoxia or hypercapnia; N17.9 Acute kidney failure, unspecified; N39.0 Urinary tract infection, site not specified; I13.0 Hypertensive heart and chronic kidney disease with heart failure and stage 1 through stage 4 chronic kidney disease, or unspecified chronic kidney disease; I48.92 Unspecified atrial flutter; E44.0 Moderate protein-calorie malnutrition; Z68.41 Body mass index [BMI] 40.0-44.9, adult; N18.4 Chronic kidney disease, stage 4 (severe); G47.33 Obstructive sleep apnea (adult) (pediatric); E78.5 Hyperlipidemia, unspecified; E11.22 Type 2 diabetes mellitus with diabetic chronic kidney disease; Z20.822 Contact with and (suspected) exposure to COVID-19; I25.10 Atherosclerotic heart disease of native coronary artery without angina pectoris; J44.9 Chronic obstructive pulmonary disease, unspecified; M17.0 Bilateral primary osteoarthritis of knee; N40.0 Benign prostatic hyperplasia without lower urinary tract symptoms; M17.12 Unilateral primary osteoarthritis, left knee; M48.061 Spinal stenosis, lumbar region without neurogenic claudication; M25.462 Effusion, left knee; M25.461 Effusion, right knee; E66.01 Morbid (severe) obesity due to excess calories; G62.9 Polyneuropathy, unspecified; G89.29 Other chronic pain; Z79.84 Long term (current) use of oral hypoglycemic drugs; Z79.4 Long term (current) use of insulin; I87.8 Other specified disorders of veins; Z79.899 Other long term (current) drug therapy; Z79.01 Long term (current) use of anticoagulants; Z82.49 Family history of ischemic heart disease and other diseases of the circulatory system; Z87.891 Personal history of nicotine dependence; Z99.81 Dependence on supplemental oxygen; W18.30XA Fall on same level, unspecified, initial encounter; Y93.89 Activity, other specified; Y92.89 Other specified places as the place of occurrence of the external cause; Y99.8 Other external cause status
CPT/HCPCS: 20611; 36415; 71045; 73070; 73560; 80048; 80053; 81003; 82962; 83735; 83880; 84100; 84484; 84550; 85025; 87077; 87186; 87426; 93005; 93970; 97162; 97166; 97168; 97530; 97535; 99285; A6261; C1893; J0696; J1030; J1650; J1940; J2795; J3490; J7060

== ENCOUNTER 2024-07-10 06:15 | Inpatient (IN) | payer BC, MEDICARE ==
[~2024-07-10] VITALS: Ht 188 cm; Wt 137.0 kg
[2024-07-10] VITALS (14 sets, daily range): BP systolic 119–135; BP diastolic 56–73; PULSE 103–113; RESP 19–30; TEMP 36.44736–37.28076; O2SAT 87–100
[~2024-07-10 06:15] MED LIST changes: -AMLO5TAB88 MT; -ASPI-1497 MT; -FURO40TA5 MT; -LEVO-65 MT; -METF-416 MT; -SILD20TA MT; +SILD20TA13 MT; +TAMS-11 MT
[2024-07-10 07:08] LABS: CHLORIDE 103 mEq/L (98-107); POTASSIUM 4.4 mEq/L (3.5-5.1); SODIUM 138 mEq/L (136-145)
[2024-07-10 07:10] LABS: CALCIUM 9.4 mg/dL (8.7-10.4); CARBON DIOXIDE 27 mEq/L (21-32)
[2024-07-10 07:15] LABS: CREATININE 2.1 mg/dL (0.6-1.3); UREA NITROGEN BLOOD 49 mg/dL (9-23)
[2024-07-10 07:16] LABS: TROPONIN I HIGH SENSITIVITY 25 ng/L (3.0-53)
[2024-07-10] MEDS: METHYLPREDNISOLONE SOD SUCC 125MG/2ML (ACT-O-VIAL) IV STA (07:18)
[2024-07-10] MEDS: CEFTRIAXONE 1GM/50ML 50 ML IV ONE (07:19)
[2024-07-10 07:23] LABS: GLUCOSE 257 mg/dL (70-105)
[2024-07-10 07:30] LABS: BASOPHILS % 0.8 % (0.0-2.0); DIFFERENTIAL COMMENT 0; EOSINOPHILS % 2.8 % (0.0-5.0); HEMOGLOBIN. 15.3 g/dL (14.0-18.0); MEAN CORPUSCULAR HEMOGLOBIN 31.1 pg (28.0-32.0); MEAN CORPUSCULAR HGB CONC 31.2 g/dL (31.0-37.0); MEAN CORPUSCULAR VOLUME 99.8 fL (80.0-94.0); MEAN PLATELET VOLUME 8.4 fl (7.4-10.4); MONOCYTES % 7.1 % (2.0-8.0); NEUTROPHILS % 64.3 % (40.0-76.0); PLATELET 200 x1000/uL (130-400); RED BLOOD CELL COUNT 4.91 mill/uL (4.7-6.1); WHITE BLOOD COUNT 7.4 x1000/uL (4.5-11.0)
[2024-07-10] MEDS: AZITHROMYCIN 500MG/250ML 250 ML IV SCH (07:58)
[2024-07-10] MEDS ORDERED: IPRATROPIUM/ALBUTEROL 0.5-3(2.5)MG/3ML NEB HHN PRN (08:30)
[2024-07-10] MEDS ORDERED: ONDANSETRON HCL 4MG/2ML INJ IV PRN (08:30)
[2024-07-10] MEDS ORDERED: DEXTROSE 50% WATER 50ML SYRINGE IV PRN (08:30)
[2024-07-10] MEDS ORDERED: ACETAMINOPHEN 325MG TABLET PO PRN ×2 (08:30)
[2024-07-10] MEDS ORDERED: GUAIFENESIN 200MG/10ML SUGAR FREE UDC PO PRN (08:30)
[2024-07-10] MEDS ORDERED: CLONIDINE 0.1MG TABLET PO PRN (08:30)
[2024-07-10] MEDS: ALBUTEROL (0.083%) 2.5MG/3ML NEB HHN SCH (08:35)
[2024-07-10] MEDS: IPRATROPIUM BROMIDE (0.02%) 0.5MG/2.5ML NEB HHN STA (08:36)
[2024-07-10 09:09] LABS: BG BASE EXCESS -2.8 mmol/L (-2.0-3.0); BG CARBOXYHEMOGLOBIN 0.7 % (0.5-1.5); BG DEOXYHEMOGLOBIN 0.5 % (0.0-5.0); BG FRACTION INSPIRED OXYGEN 100; BG HCO3 ACT 25.6 mmol/L (21.0-28.0); BG METHEMOGLOBIN 0.2 % (0.5-1.5); BG OXYGEN SATURATION 99.5 % (94.0-98.0); BG OXYHEMOGLOBIN 98.6 % (94.0-98.0); BG PH 7.255 (7.350-7.450); BG PO2 337.5 mmHg (83.0-108.0); BG SAMPLE SITE RIGHT RADIAL; BG TOTAL HEMOGLOBIN 15.4 g/dL (13.5-17.5); BG VENT MODE MASK - BIPAP
[2024-07-10 09:49] LABS: TRIGLYCERIDE 84 mg/dL (0-150)
[2024-07-10 09:50] LABS: FOLIC ACID (FOLATE) SERUM 15.22 ng/mL (>5.38); LDL CHOLESTEROL 40 mg/dL (5-100)
[2024-07-10 09:51] LABS: ALBUMIN 4.4 g/dL (3.2-4.8); CHOLESTEROL 95 mg/dL (<200); HDL CHOLESTEROL 39 mg/dL (>55); PHOSPHORUS 6.2 mg/dL (2.5-4.9); VITAMIN B12 SERUM 885 pg/mL (211-911)
[2024-07-10 10:16] LABS: CLARITY URINE CLEAR (CLEAR); COLOR URINE YELLOW (YELLOW); GLUCOSE URINE NEGATIVE (NEGATIVE); KETONES URINE NEGATIVE (NEGATIVE); LEUKOCYTE ESTERASE URINE NEGATIVE (NEGATIVE); NITRITE URINE NEGATIVE (NEGATIVE); OCCULT BLOOD URINE NEGATIVE (NEGATIVE); PROTEIN URINE 1+ (NEGATIVE); SPECIFIC GRAVITY URINE 1.016 (1.005-1.030); UROBILINOGEN URINE 0.2 E.U./dL (0.2-1.0)
[2024-07-10 10:27] LABS: *AMPHETAMINES SCREEN URINE NEGATIVE (NEGATIVE); *BARBITURATES SCREEN URINE NEGATIVE (NEGATIVE); *BENZODIAZEPINES SCREEN URINE NEGATIVE (NEGATIVE); *COCAINE SCREEN URINE NEGATIVE (NEGATIVE)
[2024-07-10 10:28] LABS: CANNABINOID URINE SCREEN NEGATIVE (NEGATIVE); ECSTASY MDMA SCREEN URINE NEGATIVE (NEGATIVE); METHADONE URINE SCREEN NEGATIVE (NEGATIVE); OPIATES URINE SCREEN NEGATIVE (NEGATIVE); PHENCYCLIDINE URINE SCREEN NEGATIVE (NEGATIVE)
[2024-07-10 10:31] LABS: TROPONIN I HIGH SENSITIVITY 263 ng/L (3.0-53)
[2024-07-10 10:33] LABS: LACTIC ACID 5.1 mmol/L (0.4-2.0)
[2024-07-10] MEDS: METHYLPREDNISOLONE SOD SUCC 40MG/ML (ACT-O-VIAL) IV SCH (10:54)
[2024-07-10] MEDS: ASPIRIN 325MG EC TABLET PO NR (10:54)
[2024-07-10] MEDS: BLOOD SUGAR DIAGNOSTIC STRIP TEST SCH (10:54)
[2024-07-10] MEDS: ENOXAPARIN 150MG/ML SYR SUBCUT NR (10:55)
[2024-07-10 11:14] LABS: BACTERIA URINE NONE SEEN; RBC URINE 0-2 /hpf (0-2); SQUAMOUS EPITHELIAL CELL URINE RARE /lpf (RARE/1+); WBC URINE 0-2 /hpf (0-2); YEAST URINE NONE SEEN
[2024-07-10 11:15] LABS: D-DIMER 0.77 mg/L FEU (<0.50); INR 1.1; PARTIAL THROMBOPLASTIN TIME 33.4 sec (23.4-31.0); PROTHROMBIN TIME 11.8 sec (9.6-11.0); T4 FREE 1.33 ng/dL (0.89-1.76); THYROID STIMULATING HORMONE 3.37 uIU/mL (0.55-4.78)
[2024-07-10] MEDS ORDERED: IOHEXOL-350 100 ML BOTTLE ONE (11:18)
[2024-07-10] MEDS: IPRATROPIUM/ALBUTEROL 0.5-3(2.5)MG/3ML NEB HHN SCH (12:04)
[2024-07-10] MEDS: INSULIN LISPRO 100 UNITS/ML SUBCUT SCH (12:49)
[2024-07-10 16:13] LABS: CREATINE KINASE MB FRACTION 2.6 ng/mL (0.5-3.6)
[2024-07-10 16:30] LABS: HEPATITIS B SURFACE ANTIGEN NEGATIVE (Negative)
[2024-07-10 16:51] LABS: HEPATITIS C AB NON REACTIVE (Neg) (Negative)
[2024-07-10] MEDS ORDERED: FLUT1BLS3 INH (20:37)
[2024-07-10] MEDS ORDERED: GABA-529 PO (20:37)
[2024-07-10] MEDS ORDERED: FERR325T6 MT (20:43)
[2024-07-10] MEDS ORDERED: APIX5TAB MT (20:43)
[2024-07-10] MEDS ORDERED: PRED1TAB MT (20:43)
[2024-07-10] MEDS ORDERED: TIMO5DRO40 EACHEYE (20:43)
[2024-07-10] MEDS ORDERED: ALLO1POW MT (20:43)
[2024-07-10] MEDS ORDERED: TIRZ15PE (20:43)
[2024-07-10] MEDS ORDERED: CHOL400D7 PO (20:43)
[2024-07-10] MEDS ORDERED: PRAV40TA58 PO (20:43)
[2024-07-10] MEDS: PANTOPRAZOLE 40MG DR TABLET PO SCH (21:30)
[2024-07-10] MEDS: FUROSEMIDE 100MG/10ML VIAL IVP SCH (21:31)
[2024-07-11] VITALS (17 sets, daily range): BP systolic 112–149; BP diastolic 63–132; PULSE 94–118; RESP 17–26; TEMP 36.28068–36.55848; O2SAT 88–96
[2024-07-11 00:31] LABS: CREATINE KINASE MB FRACTION 2.8 ng/mL (0.5-3.6)
[2024-07-11] MEDS ORDERED: CEFTRIAXONE 2GM/50ML 50 ML IV SCH (07:00)
[2024-07-11 07:08] LABS: CHLORIDE 102 mEq/L (98-107); POTASSIUM 4.5 mEq/L (3.5-5.1); SODIUM 137 mEq/L (136-145)
[2024-07-11 07:09] LABS: CALCIUM 9.7 mg/dL (8.7-10.4); CARBON DIOXIDE 27 mEq/L (21-32)
[2024-07-11 07:13] LABS: UREA NITROGEN BLOOD 50 mg/dL (9-23)
[2024-07-11 07:14] LABS: CREATININE 1.7 mg/dL (0.6-1.3); GLUCOSE 141 mg/dL (70-105)
[2024-07-11 07:16] LABS: ALANINE AMINOTRANSFERASE 46 IU/L (10-49); ALBUMIN 4.1 g/dL (3.2-4.8); ASPARTATE AMINOTRANSFERASE 33 IU/L (<34); BILIRUBIN DIRECT 0.2 mg/dL (<=3.0); PHOSPHORUS 3.6 mg/dL (2.5-4.9)
[2024-07-11 07:17] LABS: BILIRUBIN TOTAL 0.5 mg/dL (0.1-1.0); PROTEIN TOTAL 6.7 g/dL (6.0-8.3)
[2024-07-11] MEDS ORDERED: PANTOPRAZOLE 40MG DR TABLET PO SCH (07:30)
[2024-07-11 07:37] LABS: HEMOGLOBIN. 13.7 g/dL (14.0-18.0); MEAN CORPUSCULAR HEMOGLOBIN 30.4 pg (28.0-32.0); MEAN CORPUSCULAR HGB CONC 31.2 g/dL (31.0-37.0); MEAN CORPUSCULAR VOLUME 97.3 fL (80.0-94.0); MEAN PLATELET VOLUME 8.4 fl (7.4-10.4); PLATELET 194 x1000/uL (130-400); RED BLOOD CELL COUNT 4.52 mill/uL (4.7-6.1); RED CELL DISTRIBUTION WIDTH 17.5 % (11.6-14.6)
[2024-07-11 07:43] LABS: DIFFERENTIAL COMMENT 1
[2024-07-11] MEDS ORDERED: AZITHROMYCIN 500MG/250ML 250 ML IV SCH (08:00)
[2024-07-11] MEDS: AZITHROMYCIN 500MG/250ML 250 ML IV SCH (08:00)
[2024-07-11] MEDS: CEFTRIAXONE 2GM/50ML 50 ML IV SCH (08:03)
[2024-07-11] MEDS ORDERED: FUROSEMIDE 40MG/4ML VIAL IVP SCH (09:00)
[2024-07-11] MEDS: SPIRONOLACTONE 25MG TABLET PO SCH (09:20)
[2024-07-11 10:03] LABS: BG BASE EXCESS 0.1 mmol/L (-2.0-3.0); BG CARBOXYHEMOGLOBIN 0.9 % (0.5-1.5); BG DEOXYHEMOGLOBIN 10.3 % (0.0-5.0); BG HCO3 ACT 24.6 mmol/L (21.0-28.0); BG METHEMOGLOBIN 0.3 % (0.5-1.5); BG OXYGEN SATURATION 89.6 % (94.0-98.0); BG OXYHEMOGLOBIN 88.5 % (94.0-98.0); BG PCO2 39.7 mmHg (35.0-48.0); BG PO2 57.4 mmHg (83.0-108.0); BG SAMPLE SITE LEFT RADIAL; BG TOTAL HEMOGLOBIN 15.2 g/dL (13.5-17.5); BG VENT MODE NASAL CANNULA
[2024-07-11 11:00] LABS: NUCLEATED RED BLOOD CELLS 1 /100 WBC; PLATELET ESTIMATE NORMAL
[2024-07-11] MEDS ORDERED: SODIUM CHLORIDE 3% FOR INH 15ML NEB INH SCH (22:00)
[2024-07-11] MEDS: METHYLPREDNISOLONE SOD SUCC 40MG/ML (ACT-O-VIAL) IV SCH (22:21)
[2024-07-11] MEDS: ENOXAPARIN 150MG/ML SYR SUBCUT SCH (23:28)
[2024-07-12] VITALS (13 sets, daily range): BP systolic 107–154; BP diastolic 64–95; PULSE 86–112; RESP 16–25; TEMP 36.22512–36.55848; O2SAT 93–97
[2024-07-12] MEDS ORDERED: *PATIENT'S OWN MEDICATION STORAGE XX SCH (04:30)
[2024-07-12 06:45] LABS: HEMATOCRIT 47.3 % (42.0-52.0); HEMOGLOBIN 14.5 g/dL (14.0-18.0); MEAN CORPUSCULAR HGB CONC 30.6 g/dL (31.0-37.0); MEAN CORPUSCULAR VOLUME 98.1 fL (80.0-94.0); PLATELET 208 x1000/uL (130-400); RED BLOOD CELL COUNT 4.82 mill/uL (4.7-6.1); RED CELL DISTRIBUTION WIDTH 17.3 % (11.6-14.6); WHITE BLOOD COUNT 10.5 x1000/uL (4.5-11.0)
[2024-07-12 06:54] LABS: CARBON DIOXIDE 28 mEq/L (21-32); CHLORIDE 103 mEq/L (98-107); POTASSIUM 5.1 mEq/L (3.5-5.1); SODIUM 138 mEq/L (136-145)
[2024-07-12 06:55] LABS: CALCIUM 9.7 mg/dL (8.7-10.4)
[2024-07-12 07:00] LABS: CREATININE 1.7 mg/dL (0.6-1.3); GLUCOSE 128 mg/dL (70-105); UREA NITROGEN BLOOD 51 mg/dL (9-23)
[2024-07-12 07:02] LABS: PHOSPHORUS 3.9 mg/dL (2.5-4.9)
[2024-07-12] MEDS ORDERED: P20 PO ×2 (14:51→14:53)
[2024-07-12] MEDS ORDERED: LEVO750T68 MT (14:51)
[2024-07-12] MEDS ORDERED: GUAI600T26 MT (14:51)
[2024-07-12] MEDS ORDERED: DOXY100T2 MT (14:51)
[2024-07-12] MEDS ORDERED: PANT40TA51 PO (14:51)
[2024-07-12] MEDS ORDERED: SODIUM CHLORIDE 3% FOR INH 4ML NEB INH SCH (22:00)
[2024-07-13] MEDS ORDERED: PREDNISONE 20MG TABLET PO SCH (09:00)
== END 2024-07-12 19:24 | disposition home or self-care (01) | DRG 189 ==
LOC: ER 06:31 → 5EST 08:12 → EDBEDREQ 08:18
PROVIDERS: ADMIT Preventive Medicine Clinical Informatics; ATTEND Preventive Medicine Clinical Informatics
PROC: 5A09357 Assistance with Respiratory Ventilation, Less than 24 Consecutive Hours, Continuous Positive Airway Pressure (ICD-10-PCS; principal; 2024-07-10)
DX: J96.01 Acute respiratory failure with hypoxia (principal); I21.A1 Myocardial infarction type 2; J44.1 Chronic obstructive pulmonary disease with (acute) exacerbation; J47.0 Bronchiectasis with acute lower respiratory infection; E87.29 Other acidosis; I13.0 Hypertensive heart and chronic kidney disease with heart failure and stage 1 through stage 4 chronic kidney disease, or unspecified chronic kidney disease; I48.92 Unspecified atrial flutter; N17.9 Acute kidney failure, unspecified; R04.2 Hemoptysis; J84.9 Interstitial pulmonary disease, unspecified; Z68.41 Body mass index [BMI] 40.0-44.9, adult; E87.20 Acidosis, unspecified; E66.2 Morbid (severe) obesity with alveolar hypoventilation; N18.4 Chronic kidney disease, stage 4 (severe); J96.02 Acute respiratory failure with hypercapnia; E83.39 Other disorders of phosphorus metabolism; I25.10 Atherosclerotic heart disease of native coronary artery without angina pectoris; I48.0 Paroxysmal atrial fibrillation; I49.3 Ventricular premature depolarization; I50.9 Heart failure, unspecified; E11.22 Type 2 diabetes mellitus with diabetic chronic kidney disease; D75.89 Other specified diseases of blood and blood-forming organs; I89.0 Lymphedema, not elsewhere classified; M10.9 Gout, unspecified; M19.09 Primary osteoarthritis, other specified site; E78.5 Hyperlipidemia, unspecified; Z82.49 Family history of ischemic heart disease and other diseases of the circulatory system; Z79.01 Long term (current) use of anticoagulants; Z99.81 Dependence on supplemental oxygen; Z79.899 Other long term (current) drug therapy
CPT/HCPCS: 36415; 36600; 71045; 71275; 76770; 80048; 80061; 80076; 80305; 81003; 82040; 82375; 82553; 82607; 82746; 82805; 82962; 83036; 83605; 83735; 83880; 84100; 84145; 84439; 84443; 84484; 85025; 85027; 85379; 85651; 86705; 87340; 87426; 87804; 93005; 93306; 94640; 94660; 99291; J0456; J0696; J1650; J1815; J1940; J2919; J2920; Q9967

== ENCOUNTER 2025-06-28 13:13 | Emergency (ER) | payer BC, MEDICARE ==
[~2025-06-28] VITALS: Ht 177.8 cm; Wt 160.0 kg
[~2025-06-28 13:13] MED LIST changes: -AMBR5TAB3 MT; +APIX5TAB MT; +DOXY100T2 MT; -FENO145T25 PO; +FERR325T6 MT; -FLUO15CR2 TP; +FLUT1BLS3 INH; +GABA-529 PO; +GUAI600T26 MT; +LEVO750T68 MT; +P20 PO; +PANT40TA51 PO; +PRAV40TA58 PO; -SILD20TA13 MT; -SPIR25TA6 MT; -TAMS-11 MT; +TAMS-54 MT; +TIRZ15PE; -[UNRECOGNIZED DRUG - CODE] TP
[2025-06-28 13:16] VITALS: O2SAT 89
[2025-06-28 14:09] LABS: HEMATOCRIT. 44.3 % (42.0-52.0); HEMOGLOBIN. 14.1 g/dL (14.0-18.0); MEAN PLATELET VOLUME 8.0 fl (7.4-10.4); PLATELET 194 x1000/uL (130-400); RED BLOOD CELL COUNT 4.60 mill/uL (4.7-6.1); RED CELL DISTRIBUTION WIDTH 17.9 % (11.6-14.6)
[2025-06-28] MEDS: DILTIAZEM HCL 5MG/ML 5ML VIAL IV ONE (14:17)
[2025-06-28 14:23] LABS: CREATININE 2.1 mg/dL (0.6-1.3)
[2025-06-28 14:24] LABS: UREA NITROGEN BLOOD 58.0 mg/dL (9-23)
[2025-06-28 14:33] LABS: TROPONIN I HIGH SENSITIVITY 42 ng/L (3.0-53)
[2025-06-28 14:34] LABS: BAND% 1.0 % (1.0-6.0); LYMPHOCYTES % MANUAL 1.0 % (20.0-50.0); MONOCYTES % MANUAL 16.0 % (2.0-8.0); NEUTROPHILS % MANUAL 82.0 % (45.0-75.0); PLATELET ESTIMATE NORMAL
[2025-06-28] MEDS ORDERED: INSULIN REGULAR (HUMULIN R) 1000UNITS/10ML VIAL IV ONE (15:15)
[2025-06-28] MEDS ORDERED: DEXTROSE 50% WATER 50ML SYRINGE IV ONE (15:15)
[2025-06-28] MEDS: CALCIUM GLUCONATE 100MG/ML 10ML VIAL IV ONE (15:26)
[2025-06-28] MEDS: FUROSEMIDE 40MG/4ML VIAL IVP ONE (16:55)
[2025-06-28] MEDS: INSULIN REGULAR (HUMULIN R) 1000UNITS/10ML VIAL IV SCH (17:29)
[2025-06-28] MEDS: DEXTROSE 50% WATER 50ML SYRINGE IV SCH (17:31)
[2025-06-28] MEDS ORDERED: VANCOMYCIN 1000MG/250ML 250 ML IV SCH (18:45)
[2025-06-28] MEDS: PIPERACILLIN/TAZO 3.375G/50ML 50 ML IV SCH (18:57)
[2025-06-28] MEDS: VANCOMYCIN 1G PREMIX 200 ML IV SCH (20:51)
[2025-06-28 23:09] VITALS: BP 149/76; PULSE 101; RESP 18; TEMP 36.9; O2SAT 89
== END 2025-06-28 23:32 | disposition left against medical advice (07) ==
LOC: ER 13:13
DX: R06.03 Acute respiratory distress (principal); E11.9 Type 2 diabetes mellitus without complications; E11.621 Type 2 diabetes mellitus with foot ulcer; L97.529 Non-pressure chronic ulcer of other part of left foot with unspecified severity; I11.0 Hypertensive heart disease with heart failure; I50.9 Heart failure, unspecified; I48.91 Unspecified atrial fibrillation; J44.89 Other specified chronic obstructive pulmonary disease; Z79.01 Long term (current) use of anticoagulants; Z79.899 Other long term (current) drug therapy; Z79.85 Long-term (current) use of injectable non-insulin antidiabetic drugs; Z79.84 Long term (current) use of oral hypoglycemic drugs; Z79.52 Long term (current) use of systemic steroids; Z53.29 Procedure and treatment not carried out because of patient's decision for other reasons
CPT/HCPCS: 99285; 96375; 96365; 96366; 71045; 96367; 80048; 83880; 83605; 85025; 86850; 86900; 86901; 84484; 36415; 93005; J0612; J3490; J1938; J2543; J3373; J1815